=== PATIENT | male | born 1965 | race Caucasian/White ===

== ENCOUNTER 2023-09-17 08:00 | Outpatient (CLI) | payer OTHER ==
--- NOTE | 2023-09-18 11:12 | XRAY Report ---
PROCEDURE: Finger(s) LT INDICATIONS: OPEN WOUND OF LEFT MIDDLE FINGER TECHNIQUE: PA hand, 2 views of the middle finger acquired. COMPARISON: None. FINDINGS: Bones: No fractures or dislocations. No suspicious bony lesions. Soft tissues: Mild soft tissue edema of the distal middle finger. No radiopaque foreign body. IMPRESSION: No acute osseous abnormality. No radiopaque foreign body. Nonspecific soft tissue edema in the distal middle finger. Reviewed by: Bruce Stiles MD on 09/18/2023 11:11 AM PDT Approved by: Bruce Stiles MD on 09/18/2023 11:11 AM PDT Station ID: [id number]
== END 2023-09-17 23:59 | disposition home or self-care (01) ==
LOC: DI.S 08:00
PROVIDERS: ATTEND Emergency Medicine
DX: S61.203A Unspecified open wound of left middle finger without damage to nail, initial encounter (principal)